=== PATIENT | female | born 1945 | race Caucasian/White ===

== ENCOUNTER → 2016-11-06 | Outpatient (CLI) | payer OTHER ==
[~2016-11-06] MED LIST: ALLERGY RELIEF PO; AMLO5TAB4 PO; ATOR-22 PO; CALC500C70 PO; CHOLCAP5 PO; COEN1CAP28 PO; CYAN100073 PO; CYM/30 PO; GLUCTAB7 PO; LOSA50TA54 PO; RIVA1TAB4 PO; TRAM-10 PO; WARF5TAB90 PO; XRL20 PO
--- NOTE | 2016-11-06 09:35 | DIAGNOSTIC IMAGING REPORT ---
ULTRASOUND OF THE CAROTID ARTERIES CLINICAL HISTORY: Carotid artery atherosclerosis. COMPARISON STUDY: No priors. TECHNIQUE: Real-time, grayscale, and color Doppler sonography of the carotid arteries is performed. Images are reviewed in the transverse and longitudinal planes. FINDINGS: Blood pressures were not assessed due to reportedly restrictions. The carotid arteries are patent bilaterally and demonstrate antegrade flow. There is minimal atherosclerotic plaque identified. Normal doppler arterial waveforms are seen throughout. Velocity measurements are listed below. Common carotid peak systolic velocity (cm/sec): RIGHT: 95 LEFT: 64 ICA proximal peak systolic velocity (cm/sec): RIGHT: 50 LEFT: 68 ICA mid peak systolic velocity (cm/sec): RIGHT: 39 LEFT: 50 ICA distal peak systolic velocity (cm/sec): RIGHT: 51 LEFT: 45 ICA/CC peak systolic ratio: RIGHT: 0.5 LEFT: 1.1 Antegrade flow was shown in the vertebral arteries. The external carotid arteries are patent. IMPRESSION: 1. There is no sonographic evidence of hemodynamically significant stenosis in the right or left carotid arterial system. 2. Antegrade flow is shown in the vertebral arteries. Electronically signed by: Bg Quintana M.D. 11/06/2016 9:33 AM Dictated Date/Time: 11/06/2016 9:32 AM
--- NOTE | 2016-11-11 11:32 | CODING QUERY MEDICAL NECESSITY ---
SUPPORTING DIAGNOSIS NEEDED Dr. Watson, A supporting diagnosis is required for the test/procedure performed on this patient in order for us to be reimbursed by the patient's insurance. Please provide a supporting diagnosis for the following test/procedure listed below next to the test name along with your signature. *If there is no additional diagnosis for this patient that would support the following test/procedure please document that below next to the test/procedure. Test(s)/Procedure(s) that require a supporting diagnosis: * (CAROTID DOP) DUPLEX NECK ARTER DIAGNOSIS: DATE OF SERVICE: 11/06/16 Provider Signature: Date: Thank you Emil Mccann [facility] Information Management Once completed, please kindly fax back to [phone] For questions please call [phone]
== END | disposition home or self-care (01) ==
LOC: C.ULTR 08:59
PROVIDERS: ATTEND Family Medicine
DX: I65.29 Occlusion and stenosis of unspecified carotid artery (principal)

== ENCOUNTER → 2016-11-10 | Day surgery (SDC) | payer OTHER ==
[~2016-11-10] VITALS: Ht 154.9 cm; Wt 71.8 kg
[~2016-11-10] MED LIST changes: +ATROPINE SULFATE 0.1 MG/ML 5ML SYR IV PRN; +FENTANYL CITRATE INJ 50 MCG/1 ML 2 ML VIAL IV PRN; +FENTANYL CITRATE INJ 50 MCG/1 ML 2 ML VIAL ONE; +LACTATED RINGER'S 1000ML 1,000 ML IV SCH; +LIDOCAINE HCL 1% 20 ML VIAL ONE; +MIDAZOLAM HCL 1 MG/ML 2ML VIAL ONE; +MoRPHine SULFATE 2 MG/ML CARP IV PRN; +ONDANSETRON INJ 2 MG/ML 2 ML VIAL IV PRN; +PROPOFOL IV EMULSION 10 MG/ML 20 ML VIAL IV ONE; +TRAMADOL HCL 50 MG TAB PO PRN
[2016-11-10 05:45] VITALS: BP 138/83; PULSE 81; TEMP 36.8; O2SAT 96; Ht 154.9 cm; Wt 71.8 kg
[2016-11-10 06:23] LABS: INR 0.9 (0.9-1.1)
--- NOTE | 2016-11-10 06:40 | History & Physical Bridge Note ---
H&P Re-Evaluation Bridge Note: I have examined the patient, reviewed the History & Physical and in the interval since the performance of the History & Physical I have noted the following changes of clinical significance: No changes notedoff xarelta for 4 days pt marked at bedside
--- NOTE | 2016-11-10 07:02 | Discharge Instructions ---
Discharge Instructions Date of Service November 10, 2016. Visit Reason for Visit: Left Chest A-Port, Hx Of Right Breast Cancer Discharge Discharge Diagnosis / Problem: removal of A-port Discharge Goals Goal(s): Increase independence Activity Recommendations Activity Limitations: as noted below Shower/Bathe: tomorrow Anesthesia . Post Anesthesia Instructions: If you have had General Anesthesia or IV Sedation: * Do not drive today. * Resume driving when surgeon permits. * Do not make important decisions or sign legal documents today. * Call surgeon for: 1. Temperature elevations greater than 101 degrees F. 2. Uncontrollable pain. 3. Excessive bleeding. 4. Persistent nausea and vomiting. 5. Medication intolerance (nausea, vomiting or rash). * For nausea and vomiting use only clear liquids such as: tea, soda, bouillon until nausea subsides, then gradually increase diet as tolerated. * If you have any concerns or questions, call your surgeon's office. If physician is unavailable and it is an emergency, call 911 or go to the nearest emergency room. . Instructions / Follow-Up Instructions / Follow-Up Dr. Mai's office in 1 week or call for any questions or concerns, [phone] Restart Xarelto on Diet Recommendations Recommended Home Diet: no limitations Pending Studies Studies pending at discharge: no Medical Emergencies . Who to Call and When: Medical Emergencies: If at any time you feel your situation is an emergency, please call 911 immediately. . Non-Emergent Contact Non-Emergency issues call your: Surgeon Call Non-Emergent contact if: you have a fever, temperature is above 101.5, your pain is not controlled, wound has increased redness . . "Provider Documentation" section prepared by Emil Foster. .
--- NOTE | 2016-11-10 07:37 | [facility] Post Operative Brief Note ---
Immediate Operative Summary Operative Date November 10, 2016. Pre-Operative Diagnosis Exhausted IV access Post-Operative Diagnosis Same Procedure(s) Performed Removal A-port left chest Surgeon Dr Mai Environmental Projects Advisor Surgeon(s) 0 Estimated Blood Loss 2ml Findings as preop, reservoir and cath removed completely and intact sent to path Specimens A. Explanted hardware Anesthesia 1 % xyl plain(4cc) and iv sedation
[2016-11-10 08:00] VITALS: BP 98/67; PULSE 80; TEMP 36.6; O2SAT 95
[2016-11-10 08:30] VITALS: BP 130/80; PULSE 83; TEMP 36.6; O2SAT 96
--- NOTE | 2016-11-10 08:32 | OPERATIVE REPORT ---
DATE OF OPERATION: 11/10/2016 PREOPERATIVE DIAGNOSIS: A-port left anterior chest exhausted. POSTOPERATIVE DIAGNOSIS: Same. PROCEDURE: Removal of left subclavian A-port Bard port with catheter intact and sent to pathology. SURGEON: Dr. Mai. OPERATION AND FINDINGS: SUMMARY: The patient was brought into the operating room theatre. Left chest was prepped with Betadine solution and properly draped. IV sedation was given. We used local anesthetic 1% Xylocaine without epinephrine, a total of 4 mL to infiltrate just along the incision in the port site which left subclavicular area. Once we incised this, we went onto the pseudocapsule, which we opened more and exposed the reservoir, which was intact. There was no fluid. This was a Bard port, non-MRI compatible. Therefore, we were able to extract it very easily without any difficulty and the catheter came out intact. We checked up to the 0 marking. We held pressure on the subclavian area for approximately 5 minutes while we then closed the wound with a running Vicryl suture, then running Prolene suture in the skin. Dressing was applied. The procedure was tolerated well by the patient and was taken to recovery in good condition. I attest to the content of the Intraoperative Record and any orders documented therein. Any exceptio ns are noted below.
--- NOTE | 2016-11-10 08:44 | Anesthesiology Progress Note ---
Anesthesia Post Op Note Date & Time November 10, 2016 at 08:44 Vital Signs Pain Intensity: 0 Vital Signs Past 12 Hours Date Time Temp Pulse Resp B/P Pulse Ox O2 Delivery O2 Flow Rate FiO2 11/10/16 08:00 36.6 80 18 98/67 95 Room Air 11/10/16 07:41 36.3 84 16 104/73 94 Room Air 11/10/16 07:31 36.0 81 16 117/73 97 Mask 10 11/10/16 05:45 36.8 81 18 138/83 96 Room Air Notes Mental Status: alert / awake / arousable, participated in evaluation Pt Amnestic to Procedure: Yes Nausea / Vomiting: adequately controlled Pain: adequately controlled Airway Patency, RR, SpO2: stable & adequate BP & HR: stable & adequate Hydration State: stable & adequate Anesthetic Complications: no major complications apparent
== END | disposition home or self-care (01) ==
LOC: C.ACU 05:01
PROVIDERS: ATTEND Surgery
DX: Z45.2 Encounter for adjustment and management of vascular access device (principal); F32.9 Major depressive disorder, single episode, unspecified; M79.7 Fibromyalgia; Z86.718 Personal history of other venous thrombosis and embolism; E78.5 Hyperlipidemia, unspecified; I10 Essential (primary) hypertension; M81.0 Age-related osteoporosis without current pathological fracture; Z85.3 Personal history of malignant neoplasm of breast; E55.9 Vitamin D deficiency, unspecified; Z83.3 Family history of diabetes mellitus; Z80.2 Family history of malignant neoplasm of other respiratory and intrathoracic organs; Z87.891 Personal history of nicotine dependence; Z79.899 Other long term (current) drug therapy; Z79.01 Long term (current) use of anticoagulants

== ENCOUNTER → 2017-01-11 | Outpatient (CLI) | payer OTHER ==
[~2017-01-11] MED LIST changes: -ATROPINE SULFATE 0.1 MG/ML 5ML SYR IV PRN; -FENTANYL CITRATE INJ 50 MCG/1 ML 2 ML VIAL IV PRN; -FENTANYL CITRATE INJ 50 MCG/1 ML 2 ML VIAL ONE; -LACTATED RINGER'S 1000ML 1,000 ML IV SCH; -LIDOCAINE HCL 1% 20 ML VIAL ONE; -MIDAZOLAM HCL 1 MG/ML 2ML VIAL ONE; -MoRPHine SULFATE 2 MG/ML CARP IV PRN; -ONDANSETRON INJ 2 MG/ML 2 ML VIAL IV PRN; -PROPOFOL IV EMULSION 10 MG/ML 20 ML VIAL IV ONE; -TRAMADOL HCL 50 MG TAB PO PRN; -WARF5TAB90 PO; -XRL20 PO
[2017-01-11 13:13] LABS: BASO % 0.4 %; BASO ABS # 0.02 K/uL (0-0.2); COMPLETE YES; EOS % 1.4 %; HEMATOCRIT 41.7 % (37-47); IG% 0.2 %; LYMPH % 19.8 %; LYMPH ABS # 0.98 K/uL (1.2-3.4); MEAN CELL VOLUME 91.6 fL (80-100); MEAN CORPUSCULAR HEMOGLOBIN 31.6 pg (25-34); MEAN CORPUSCULAR HGB CONC 34.5 g/dl (32-36); MEAN PLATELET VOLUME 9.7 fL (7.4-10.4); MONO % 10.3 %; NEUT % 67.9 %; PLATELET COUNT 230 K/uL (130-400); RED BLOOD COUNT 4.55 M/uL (4.2-5.4); WHITE BLOOD COUNT 4.94 K/uL (4.8-10.8)
--- NOTE | 2017-01-20 09:50 | CODING QUERY MEDICAL NECESSITY ---
SUPPORTING DIAGNOSIS NEEDED Dr. Watson, A supporting diagnosis is required for the test/procedure performed on this patient in order for us to be reimbursed by the patient's insurance. Please provide a supporting diagnosis for the following test/procedure listed below next to the test name along with your signature. *If there is no additional diagnosis for this patient that would support the following test/procedure please document that below next to the test/procedure. Test(s)/Procedure(s) that require a supporting diagnosis: * ([id number]) B12 VITAMIN LEVEL DIAGNOSIS: DATE OF SERVICE: 01/11/17 Provider Signature: Date: Thank you Emil [facility]ccann [facility] Information Management Once completed, please kindly fax back to [phone] For questions please call [phone]
== END | disposition home or self-care (01) ==
LOC: C.LABMFLN 10:12
PROVIDERS: ATTEND Family Medicine
DX: R53.83 Other fatigue (principal)

== ENCOUNTER → 2017-01-21 | Outpatient (CLI) | payer OTHER ==
--- NOTE | 2017-01-21 15:59 | DIAGNOSTIC IMAGING REPORT ---
RIGHT HIP UNILATERAL 2 VIEWS CLINICAL HISTORY: 71 years-old Female presenting with right hip pain, no history of trauma. TECHNIQUE: Frontal and frog-leg lateral views of the right hip were obtained. COMPARISON: None. FINDINGS: No acute fracture or malalignment. Hip joint congruent. Mild degenerative changes. Joint space preserved. Regional soft tissues grossly normal. IMPRESSION: No acute osseous injury of the right hip. Electronically signed by: Arcadio Isabel M.D. 01/21/2017 3:58 PM Dictated Date/Time: 01/21/2017 3:57 PM
== END | disposition home or self-care (01) ==
LOC: C.RAD 15:19
PROVIDERS: ATTEND Physician Assistant Medical
DX: M25.551 Pain in right hip (principal)

== ENCOUNTER → 2017-01-21 | Outpatient (CLI) | payer OTHER ==
[2016-01-02 14:05] VITALS: BP 105/73; PULSE 91
[2017-01-21 13:57] VITALS: BP 120/75; PULSE 93; TEMP 36.9; O2SAT 97
--- NOTE | 2017-01-21 17:09 | Radiation Oncology Follow-Up ---
Radiation Oncology Follow-Up Date of Visit Jan 21, 2017. Reason For Visit Annual follow-up Radiation Completion Date 05/09/15 Diagnosis (1) Breast cancer, stage 3 Status: Resolved Onset Date: 05/28/2014 Histology Subtype: invasive ductal Stage: lll Permanent Comment: Self detected right breast mass Status post biopsy revealing invasive ductal carcinoma 05/28/2014 Estrogen receptor negative, progesterone receptor negative, HER-2/nick negative Status post bilateral mastectomies with right axillary dissection 06/28/2014 Stage [id number] Status post systemic chemotherapy with Adriamycin and Cytoxan for 4 cycles followed by Taxol given weekly for 12 weeks. She had a 5 week break in Taxol treatment after cycle 6 due to fractured tibia/ fibular Status post DVT found to have factor V Leiden and prothrombin gene now on anticoagulation Status post completion of radiation therapy 05/09/2015 received 6040 cGy Last Edited By: Zohra Tucker on May 27, 2015 13:12 History of Present Illness Ms. Ling is a 70-year-old female who noted a palpable mass in the right breast. On May 282013 patient underwent a unilateral right digital diagnostic mammogram and targeted ultrasound. She had had previous mammograms at [facility] with the most recent on 03/15/2014. A marker was placed on the palpable lesion that was illdefined but appeared to measure 3 x 5 cm. The mammogram showed skin thickening overlying the mass raising the possibility of dermal extension. Targeted ultrasound in the area of the palpable lump at the 3 to 4 o'clock position revealed an irregular hypoechoic mass which was highly suspicious for malignancy. Ultrasound of the right axilla revealed a 2.2 cm lymph node in the low right axilla. An ultrasound guided core biopsy was performed at that time with a clip placement. This revealed an invasive ductal carcinoma Je grade 2 of 3 with no lymphovascular or perineural invasion. Estrogen receptors were negative. Progesterone receptors were negative. HER-2/ nikc overexpression was negative by immunohistochemistry and by FISH. Ki-67 proliferation index was elevated at 40% . Case: [id number]. Patient was seen by Dr. Hampton for discussion of treatment options. His examination of the right breast revealed a 4 cm inferior medial quadrant mass palpable. The right breast was slightly larger than the left. There was no evidence of lymphedema. There appeared to be some involvement of the skin at the 4 o'clock position. Axillary nodes were not palpable. Patient underwent a staging procedure including a PET/CT scan on 06/11. This showed a focus of increased FDG activity fusing to the 4 cm right breast mass. Focus of increased FDG activity also fused to the right axillary lymph node and a right internal mammary lymph node. Genet metastasis were felt to be likely. On June 13 the patient underwent bilateral breast MRIs with without contrast. In the right breast an irregular enhancing mass measuring at least 4.7 cm was identified. The mass extends to involve the overlying skin in the breast at the 3 to 4 o'clock position. The left breast was unremarkable. In the right axilla a 1.6 cm lymph node was identified with no left axillary adenopathy. A 3 mm focus in the left breast at the 1:00 was felt to be benign but recommended follow-up. Patient was seen by Dr. Iqbal for medical oncology evaluation on 06/15/2014. The patient wished to proceed with bilateral mastectomies. 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 Dr. Iqbal felt the patient would be a candidate for postoperative adjuvant chemotherapy. On 06/29/2014 the patient underwent bilateral mastectomies. The tissue from the left breast revealed benign breast tissue. The tissue from the right mastectomy revealed an invasive ductal carcinoma [place] grade 3 of 3. The tumor measured 3.0 x 3.0 x 2.0 cm. There was evidence of tumor involving the dermis. There was no perineural invasion but there was lymphovascular invasion identified. The margins were negative with invasive carcinoma 0.3 cm from the deep margin. 16 lymph nodes were taken one of which was positive with a macro metastatic deposit measuring 1.5 cm and evidence of extranodal extension. A tumor nodule measuring 0.5 cm was noted near the suture that was to represent I pointed the axillary dissection. This was thought to possibly represent an additional lymph node that was completely replaced by tumor. Case: [id number]. Pathologic stage was pT2 pN1a ER negative, KS negative and HER-2 /nick negative. With the positive PET scan showing an in internal mammary lymph node her N stage would be IIIb. Patient is recovering well from her surgery. Her case was discussed at the cancer conference. Recommendations were for adjuvant chemotherapy and following the completion of adjuvant chemotherapy for adjuvant radiation to the right chest wall and the right axilla. She underwent systemic chemotherapy with Adriamycin and Cytoxan for 4 cycles. This was then followed by Taxol weekly for 12 weeks. She tolerated this well but did have a 5 week break after Taxol treatment #6. She slipped and fell on a concrete floor and fractured her tibia and fibula. She steadily improved and was able to then restart and complete her chemotherapy 3 weeks ago. 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 Denies problems with her feet. She did develop DVTs. She stated there have been clots in both lower extremities. She was evaluated and found to have factor V Leiden as well as prothrombin gene. She is now on anticoagulation. She also had a filter placed. She has noted no changes to the chest wall or axilla since the completion of surgery. She returns for CT simulation and to start the process of radiation therapy. She completed radiation therapy 05/09/2015 received 6040 cGy. Interim History She has noticed no changes of the chest wall over this past year. There've been no masses or tenderness and no change of the axilla. She is noticed no swelling of her arm. She made the decision to have her port removed. Then underwent that procedure. She continues to have neuropathy especially of the tips of fingers and the end of the left foot area and she has had arthritic discomfort and some with pain in the right knee. She underwent an injection and this has greatly improved. Of late she has now having pain in her right hip. This is noted especially at night. She denies pain with bearing weight. She felt the hip discomfort came from straining with walking due to the pain in her knee. Today she had an episode of right jaw pain. This was sudden in onset. She became quite concerned. She took 3 baby aspirin. The pain has completely resolved. She did not experience any shortness of breath or diaphoresis. She did not have chest pain. Allergies Coded Allergies: Penicillins (Verified Allergy, Severe, ANAPHYLAXIS, 11/10/16) REJI Inhibitors (Verified Allergy, Unknown, UNKNOWN, 11/10/16) Codeine (Verified Adverse Reaction, Mild, GI SYMPTOMS, 11/10/16) Home Medications Scheduled Amlodipine Besylate (Norvasc), 2.5 MG PO HS Atorvastatin (Lipitor), 20 MG PO QPM Calcium/Vitamin D (Os-Jordan 500 Plus D), 1 TAB PO BID Cholecalciferol (Vitamin D3), 10,000 INTUNIT PO HS Coenzyme Q10 (Ubidecarenone) (Co Q10), 100 MG PO HS Cyanocobalamin (B12), 1 TAB PO DAILY Duloxetine Hcl (Cymbalta), 30 MG PO HS Slokntdqrvt-Kjtrtkcaybw-Xsl C- (Glucosamine Chondroitin), 1 TAB PO QAM Losartan Potassium (Cozaar), 50 MG PO HS Rivaroxaban (Xarelto), 1 TAB PO DAILY [Allergy Relief], 1 TAB PO PRN Scheduled PRN Tramadol (Ultram), 50 MG PO Q4H PRN for Pain Review of Systems Gastrointestinal: Symptoms: WNL Oral: Symptoms: No Problems Respiratory: Symptoms: WNL Urinary: Symptoms: WNL Skin: Symptoms: No Problems Breast: Right Upper Arm Measurement: 29.2 Right Mid Arm Measurement: 23.1 Right Wrist Measurement: 16.5 Left Upper Arm Measurement: 29.5 Left Mid Arm Measurement: 23.8 Left Wrist Measurement: 16.4 Arm Dominence: Left Physical Exam Vital Signs Date Time Temp Pulse Resp B/P (MAP) Pulse Ox O2 Delivery O2 Flow Rate FiO2 01/21/17 13:57 36.9 93 16 120/75 97 Pain: Pain Location: None Patient Pain Scale: 0 - 10 Initial Pain Intensity: 0.0 Fatigue: None General Appearance: no apparent distress Eyes: normal inspection, EOMI ENT: normal ENT inspection, hearing grossly normal Neck: no adenopathy, thyroid normal Respiratory/Chest: lungs clear, no respiratory distress, no accessory muscle use Breast: Examination of the chest reveals bilateral mastectomies. There are no masses or tenderness no axillary adenopathy. There is no tenderness. She has no telangiectasia. Using the [place] score cosmesis she has a good outcome in regards to skin. Cardiovascular: regular rate, rhythm, no gallop, no murmur Abdomen: non tender, soft Extremities: no pedal edema Neurologic/Psychiatric: no motor/sensory deficits, alert, normal mood/affect Skin: warm/dry Laboratory Studies Test 10/29/16 12:26 11/10/16 06:09 01/11/17 10:20 Prothrombin Time 24.7 SECONDS (9.0-12.0) 10.0 SECONDS (9.0-12.0) Prothrombin Time INR 2.2 (0.9-1.1) 0.9 (0.9-1.1) White Blood Count 4.94 K/uL (4.8-10.8) Red Blood Count 4.55 M/uL (4.2-5.4) Hemoglobin 14.4 g/dL (12.0-16.0) Hematocrit 41.7 % (37-47) Mean Corpuscular Volume 91.6 fL (80-100) Mean Corpuscular Hemoglobin 31.6 pg (25-34) Mean Corpuscular Hemoglobin Concent 34.5 g/dl (32-36) Platelet Count 230 K/uL (130-400) Mean Platelet Volume 9.7 fL (7.4-10.4) Neutrophils (%) (Auto) 67.9 % Lymphocytes (%) (Auto) 19.8 % Monocytes (%) (Auto) 10.3 % Eosinophils (%) (Auto) 1.4 % Basophils (%) (Auto) 0.4 % Neutrophils # (Auto) 3.35 K/uL (1.4-6.5) Lymphocytes # (Auto) 0.98 K/uL (1.2-3.4) Monocytes # (Auto) 0.51 K/uL (0.11-0.59) Eosinophils # (Auto) 0.07 K/uL (0-0.5) Basophils # (Auto) 0.02 K/uL (0-0.2) RDW Standard Deviation 43.1 fL (36.4-46.3) RDW Coefficient of Variation 12.9 % (11.5-14.5) Immature Granulocyte % (Auto) 0.2 % Immature Granulocyte # (Auto) 0.01 K/uL (0.00-0.02) Vitamin B12 Level 512 pg/mL (211-911) Thyroid Stimulating Hormone (TSH) 3.730 uIu/ml (0.300-4.500) Assessment & Plan Plan: Continue regular follow-up with medical oncology. The neuropathy has previously been discussed and she does not wish to take medication for this side effects. For the right hip pain and x-rays was ordered. She'll be notified as to results. We discussed the jaw pain. This could've been cardiac in nature. I've asked her to make an appointment for as soon as possible with her primary care physician. She may go to the emergency room if she has any recurrence. We asked her to return to our office in 1 year. Total Time In Follow-Up I spent 20 minutes speaking to the patient performing examination. I spent 15 minutes reviewing information in completing this note. Copy To José Luis Rivas D.O.; Zulma Watson M.D. Problem Qualifiers (1) Breast cancer, stage 3: Laterality: right Qualified Codes: C50.911 - Malignant neoplasm of unspecified site of right female breast
== END | disposition home or self-care (01) ==
LOC: C.ONC 13:43
PROVIDERS: ATTEND Physician Assistant Medical
DX: Z08 Encounter for follow-up examination after completed treatment for malignant neoplasm (principal); Z92.3 Personal history of irradiation; Z85.3 Personal history of malignant neoplasm of breast; M25.551 Pain in right hip

== ENCOUNTER → 2017-01-29 | Outpatient (CLI) | payer OTHER ==
--- NOTE | 2017-01-29 13:51 | EXERCISE STRESS ECHO ---
*NOTICE TO RECEIVING REPUBLICAN AGENCY This information is strictly Confidential and protected under [place] law. [place] law prohibits you from making any further disclosure of this information unless further disclosure is expressly permitted by the written consent of the person to whom it pertains or is authorized by law. A general authorization for the release of medical or other information is not sufficient for this purpose. Hospital accepts no responsibility if the information is made available to any other person, INCLUDING THE PATIENT. Interpretation Summary * Name: VARSHA LUBIN V Study Date: 01/29/2017 09:38 AM BP: 143/80 mmHg * Patient Location: [facility] HR: 79 * : 1945 (M/d/yyyy) Gender: Female Height: 61 in * Age: 71 yrs Ethnicity: [place] Weight: 155 lb * Ordering Physician: FUENTES RAO MD * Referring Physician: JALEN * Performed By: Brittney Schneider RDCS * * Reason For Study: SOB, JAW PAIN * BSA: 1.7 m2 * -- Conclusions -- * The left ventricular wall motion is normal at rest. * Left ventricular systolic function is normal. * Grade I diastolic dysfunction, (abnormal relaxation pattern). 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 This may be a false positive given the absence of EKG changes or symptoms. 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 This may be a false positive given the absence of EKG changes or symptoms. Left Ventricle * The left ventricle is grossly normal size. * There is normal left ventricular wall thickness. * Ejection Fraction = 50-55%. * Left ventricular systolic function is normal. * Grade I diastolic dysfunction, (abnormal relaxation pattern). * The left ventricular wall motion is normal at rest. Right Ventricle * The right ventricle is normal in size and function. Atria * The left atrial size is normal. * Right atrial size is normal. Mitral Valve * The mitral valve anatomy is normal. * Significant mitral regurgitation is absent. Tricuspid Valve * The tricuspid valve is not well visualized, but is grossly normal. * There is mild tricuspid regurgitation. Aortic Valve * The aortic valve is normal in structure and function. * No hemodynamically significant valvular aortic stenosis. * There is no significant aortic regurgitation. Great Vessels * The aortic root is normal size. Pericardium * There is no pericardial effusion. Stress Parameters * Normal baseline electrocardiogram. * The stress ECG response was normal * The stress portion of this study was personally supervised by the undersigned interpreting physician. * Rest heart rate was '79' BPM. * Rest blood pressure was '143/80' * Maximum heart rate achieved was 162 bpm. * Maximum heart rate was 109 % of maximum age-predicted heart rate. * Maximum blood pressure was '218/90' * Total exercise time was '4:51' * Maximum exercise MET level achieved was '6.80' METS * Maximum treadmill speed was '3.50' miles per hour. * Maximum treadmill elevation was '12.00'% grade. * Exercise was terminated due to 'ACHIEVING TARGET HR' Left Ventricular Findings with Stress * Baseline EKG was normal. No significant EKG changes with exercise. Baseline echocardiogram suggested anterior wall hypokinesis Good augmentation with exercise except for the anterior wass which was severely hypokinetic. Exaggerated heart rate response and hypertensive BP response to exercise Walters treadmill score: 4-5 (intermediate risk) No symptoms reported MMode 2D Measurements and Calculations IVSd 10 cm IVSs 1.3 cm LVIDd 4.2 cm LVIDs 3.0 cm LVPWd 0.73 cm LVPWs 1.4 cm IVS/LVPW 1.4 FS 26.8 % EDV(Teich) 76.9 ml ESV(Teich) 36.3 ml EF(Teich) 52.8 % EDV(cubed) 72.0 ml ESV(cubed) 28.2 ml EF(cubed) 60.8 % % IVS thick 30.8 % % LVPW thick 92.0 % LV mass(C)d 110.3 grams LV mass(C)dI 65.1 grams/m\S\2 LV mass(C)s 135.0 grams LV mass(C)sI 79.6 grams/m\S\2 SV(Teich) 40.6 ml SI(Teich) 23.9 ml/m\S\2 SV(cubed) 43.8 ml SI(cubed) 25.9 ml/m\S\2 Ao root diam 3.4 cm Ao root area 9.1 cm\S\2 LA dimension 2.8 cm LA/Ao 0.82 LVAd ap4 24.0 cm\S\2 LVLd ap4 7.8 cm EDV(MOD-sp4) 63.5 ml EDV(sp4-el) 62.7 ml LVAs ap4 14.8 cm\S\2 LVLs ap4 6.4 cm ESV(MOD-sp4) 31.3 ml ESV(sp4-el) 29.0 ml EF(MOD-sp4) 50.7 % EF(sp4-el) 53.7 % LVAd ap2 21.8 cm\S\2 LVLd ap2 6.9 cm EDV(MOD-sp2) 60.9 ml EDV(sp2-el) 58.2 ml LVAs ap2 14.5 cm\S\2 LVLs ap2 6.2 cm ESV(MOD-sp2) 31.3 ml ESV(sp2-el) 28.5 ml EF(MOD-sp2) 48.7 % EF(sp2-el) 51.0 % LVLd %diff -12.54 % EDV(MOD-bp) 65.4 ml LVLs %diff -2.56 % ESV(MOD-bp) 30.8 ml EF(MOD-bp) 52.9 % SV(MOD-sp4) 32.2 ml SI(MOD-sp4) 19.0 ml/m\S\2 SV(MOD-sp2) 29.6 ml SI(MOD-sp2) 17.5 ml/m\S\2 SV(MOD-bp) 34.6 ml SI(MOD-bp) 20.4 ml/m\S\2 SV(sp4-el) 33.7 ml SI(sp4-el) 19.9 ml/m\S\2 SV(sp2-el) 29.7 ml SI(sp2-el) 17.5 ml/m\S\2 Doppler Measurements and Calculations MV E max nayan 56.8 cm/sec MV A max nayan 88.3 cm/sec MV E/A 0.64 MV dec time 0.23 sec Ao V2 max 89.5 cm/sec Ao max PG 3.2 mmHg Ao max PG (full) 0.79 mmHg LV V1 max PG 2.4 mmHg LV V1 max 77.6 cm/sec
== END | disposition home or self-care (01) ==
LOC: C.CPL 09:30
PROVIDERS: ATTEND Family Medicine
DX: R68.84 Jaw pain (principal); R06.02 Shortness of breath

== ENCOUNTER → 2017-06-01 | Outpatient (CLI) | payer OTHER ==
[2017-06-01 13:24] LABS: BASO % 0.2 %; BASO ABS # 0.01 K/uL (0-0.2); COMPLETE YES; EOS % 0.9 %; HEMATOCRIT 42.5 % (37-47); IG% 0.2 %; LYMPH % 20.5 %; LYMPH ABS # 1.15 K/uL (1.2-3.4); MEAN CELL VOLUME 91.4 fL (80-100); MEAN CORPUSCULAR HEMOGLOBIN 31.6 pg (25-34); MEAN CORPUSCULAR HGB CONC 34.6 g/dl (32-36); MEAN PLATELET VOLUME 9.9 fL (7.4-10.4); MONO % 8.8 %; NEUT % 69.4 %; PLATELET COUNT 224 K/uL (130-400); RED BLOOD COUNT 4.65 M/uL (4.2-5.4)
--- NOTE | 2017-06-01 13:32 | DIAGNOSTIC IMAGING REPORT ---
CHEST 2 VIEWS ROUTINE CLINICAL HISTORY: 72 years-old Female presenting with BREAST CA, WENT TO LAB [facility]. TECHNIQUE: PA and lateral views of the chest were obtained. COMPARISON: 10/21/2016. FINDINGS: Interval removal of the left subclavian Mediport. Atherosclerosis of aortic arch. Chronic silhouette normal in size. Lungs and pleural spaces clear. Degenerative changes of the thoracic spine. Degenerative changes of the acromioclavicular joints. Upper abdomen normal. IMPRESSION: 1. No acute cardiopulmonary disease. Electronically signed by: Arcadio Isabel M.D. 06/01/2017 1:30 PM Dictated Date/Time: 06/01/2017 1:29 PM
[2017-06-01 13:50] LABS: ALT/SGPT 20 U/L (12-78); BLOOD UREA NITROGEN 11 mg/dl (7-18); BUN/CREATININE RATIO 15.5 (10-20); CALCIUM 9.4 mg/dl (8.5-10.1); CARBON DIOXIDE 26 mmol/L (21-32); CHLORIDE 104 mmol/L (98-107); CREATININE 0.69 mg/dl (0.60-1.20); GLUCOSE 81 mg/dl (70-99); POTASSIUM 3.6 mmol/L (3.5-5.1); SODIUM 137 mmol/L (136-145)
[2017-06-01 13:53] LABS: ALB/GLOB RATIO 1.1 (0.9-2); ALKALINE PHOSPHATASE 121 U/L (45-117); AST/SGOT 20 U/L (15-37)
== END | disposition home or self-care (01) ==
LOC: C.LAB 12:48
PROVIDERS: ATTEND Nurse Practitioner Family
DX: C50.911 Malignant neoplasm of unspecified site of right female breast (principal)

== ENCOUNTER → 2017-10-28 | Outpatient (CLI) | payer OTHER | END | disposition home or self-care (01) | LOC: C.LABMFLN 10:50 | PROVIDERS: ATTEND Family Medicine | DX: E78.5 Hyperlipidemia, unspecified (principal) ==

== ENCOUNTER → 2018-01-05 | Outpatient (CLI) | payer OTHER ==
--- NOTE | 2018-01-05 15:02 | DIAGNOSTIC IMAGING REPORT ---
SOFT TISS HEAD/NECK-THYROID CLINICAL HISTORY: 72 years-old Female presenting with R59.0 Cervical lymphadenopathy, history of breast cancer with right axillary bel dissection, palpable lump at the left inferior and lateral neck. TECHNIQUE: Real-time grayscale and color Doppler ultrasound imaging of the neck was performed. COMPARISON: None. FINDINGS: At the site of clinical interest in the left base of the neck, multiple suspicious-appearing lymph nodes noted. These are rounded globular and do not maintain a normal fatty hilum. These are index below: 1. 5 x 5 x 6 mm lymph node. 2. 9 x 10 x 10 mm lymph node. 3. 9 x 18 x 11 mm lymph node. 4. 13 x 17 x 8 mm lymph node. The right base of the neck does not demonstrate suspicious lymphadenopathy. IMPRESSION: Multiple pathologically enlarged and highly suspicious appearing lymph nodes in the left base of the neck near the supraclavicular fossa. Fine-needle aspiration of the largest lymph node is recommended under ultrasound guidance given the suspicion for malignancy. The report will be called/faxed according to standard departmental protocol. Electronically signed by: Arcadio Isabel M.D. 01/05/2018 3:01 PM Dictated Date/Time: 01/05/2018 2:58 PM
== END | disposition home or self-care (01) ==
LOC: C.ULTR 13:52
PROVIDERS: ATTEND Physician Assistant
DX: R59.0 Localized enlarged lymph nodes (principal); Z85.3 Personal history of malignant neoplasm of breast

== ENCOUNTER → 2018-01-25 | Outpatient (CLI) | payer OTHER ==
[2018-01-25 13:20] VITALS: BP 134/83; PULSE 80; TEMP 36.5; O2SAT 97
--- NOTE | 2018-01-25 15:08 | Radiation Oncology Follow-Up ---
Radiation Oncology Follow-Up Date of Visit Jan 25, 2018. Reason For Visit Annual follow up Radiation Completion Date 05/09/15 Diagnosis (1) Breast cancer, stage 3 Status: Chronic Onset Date: 05/28/2014 Location: Now with left supraclavicular recurrence Permanent Comment: Self detected right breast mass Status post biopsy revealing invasive ductal carcinoma 05/28/2014 Estrogen receptor negative, progesterone receptor negative, HER-2/nick negative Status post bilateral mastectomies with right axillary dissection 06/28/2014 Stage [id number] Status post systemic chemotherapy with Adriamycin and Cytoxan for 4 cycles followed by Taxol given weekly for 12 weeks. She had a 5 week break in Taxol treatment after cycle 6 due to fractured tibia/ fibular Status post DVT found to have factor V Leiden and prothrombin gene now on anticoagulation Status post completion of radiation therapy 05/09/2015 received 6040 cGy Last Edited By: Zohra Tucker on May 27, 2015 13:12 History of Present Illness Ms. Lubin is a 70-year-old female who noted a palpable mass in the right breast. On May 282013 patient underwent a unilateral right digital diagnostic mammogram and targeted ultrasound. She had had previous mammograms at [facility] with the most recent on 03/15/2014. A marker was placed on the palpable lesion that was illdefined but appeared to measure 3 x 5 cm. The mammogram showed skin thickening overlying the mass raising the possibility of dermal extension. Targeted ultrasound in the area of the palpable lump at the 3 to 4 o'clock position revealed an irregular hypoechoic mass which was highly suspicious for malignancy. Ultrasound of the right axilla revealed a 2.2 cm lymph node in the low right axilla. An ultrasound guided core biopsy was performed at that time with a clip placement. This revealed an invasive ductal carcinoma [place] grade 2 of 3 with no lymphovascular or perineural invasion. Estrogen receptors were negative. Progesterone receptors were negative. HER-2/ nick overexpression was negative by immunohistochemistry and by FISH. Ki-67 proliferation index was elevated at 40% . Case: [id number]. Patient was seen by Dr. Hampton for discussion of treatment options. His examination of the right breast revealed a 4 cm inferior medial quadrant mass palpable. The right breast was slightly larger than the left. There was no evidence of lymphedema. There appeared to be some involvement of the skin at the 4 o'clock position. Axillary nodes were not palpable. Patient underwent a staging procedure including a PET/CT scan on 06/11. This showed a focus of increased FDG activity fusing to the 4 cm right breast mass. Focus of increased FDG activity also fused to the right axillary lymph node and a right internal mammary lymph node. Bel metastasis were felt to be likely. On June 13 the patient underwent bilateral breast MRIs with without contrast. In the right breast an irregular enhancing mass measuring at least 4.7 cm was identified. The mass extends to involve the overlying skin in the breast at the 3 to 4 o'clock position. The left breast was unremarkable. In the right axilla a 1.6 cm lymph node was identified with no left axillary adenopathy. A 3 mm focus in the left breast at the 1:00 was felt to be benign but recommended follow-up. Patient was seen by Dr. Iqbal for medical oncology evaluation on 06/15/2014. The patient wished to proceed with bilateral mastectomies. 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 Dr. Iqbal felt the patient would be a candidate for postoperative adjuvant chemotherapy. On 06/29/2014 the patient underwent bilateral mastectomies. The tissue from the left breast revealed benign breast tissue. The tissue from the right mastectomy revealed an invasive ductal carcinoma [place] grade 3 of 3. The tumor measured 3.0 x 3.0 x 2.0 cm. There was evidence of tumor involving the dermis. There was no perineural invasion but there was lymphovascular invasion identified. The margins were negative with invasive carcinoma 0.3 cm from the deep margin. 16 lymph nodes were taken one of which was positive with a macro metastatic deposit measuring 1.5 cm and evidence of extranodal extension. A tumor nodule measuring 0.5 cm was noted near the suture that was to represent I pointed the axillary dissection. This was thought to possibly represent an additional lymph node that was completely replaced by tumor. Case: [id number]. Pathologic stage was pT2 pN1a ER negative, GA negative and HER-2 /nick negative. With the positive PET scan showing an in internal mammary lymph node her N stage would be IIIb. Patient is recovering well from her surgery. Her case was discussed at the cancer conference. Recommendations were for adjuvant chemotherapy and following the completion of adjuvant chemotherapy for adjuvant radiation to the right chest wall and the right axilla. She underwent systemic chemotherapy with Adriamycin and Cytoxan for 4 cycles. This was then followed by Taxol weekly for 12 weeks. She tolerated this well but did have a 5 week break after Taxol treatment #6. She slipped and fell on a concrete floor and fractured her tibia and fibula. She steadily improved and was able to then restart and complete her chemotherapy 3 weeks ago. 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 Denies problems with her feet. She did develop DVTs. She stated there have been clots in both lower extremities. She was evaluated and found to have factor V Leiden as well as prothrombin gene. She is now on anticoagulation. She also had a filter placed. She has noted no changes to the chest wall or axilla since the completion of surgery. She returns for CT simulation and to start the process of radiation therapy. She completed radiation therapy 05/09/2015 received 6040 cGy. Interim History The patient noted a small tiny mass of the left supraclavicular area. She was seen at the primary care physician's office and ultrasound was ordered. This was performed on January 05, 2018. This revealed multiple pathologically enlarged and highly suspicious appearing lymph nodes in the left base of the neck near the supraclavicular fossa. She then underwent an FNA January 10, 2018. This revealed metastatic adenocarcinoma consistent with metastatic adenocarcinoma of the breast origin. Estrogen receptor was negative progesterone receptor negative and failed to overexpress HER-2/nick. She has been referred back to her medical oncologist who ordered a PET CT. This had been scheduled for yesterday January 24. Unfortunately the PET scanner was down. This is now been rescheduled for tomorrow January 26. In general she does feel generally fatigued. She has had approximate 7 pound weight loss. This was mainly related to following a low-carb diet. This was in preparation for her PET/CT. She denies any discomfort of the neck. She is noted no masses of her chest. He has noted no masses of the axilla. Allergies Coded Allergies: Penicillins (Verified Allergy, Severe, ANAPHYLAXIS, 11/10/16) REJI Inhibitors (Verified Allergy, Unknown, UNKNOWN, 11/10/16) Codeine (Verified Adverse Reaction, Mild, GI SYMPTOMS, 11/10/16) Home Medications Scheduled Amlodipine Besylate (Norvasc), 2.5 MG PO HS Atorvastatin (Lipitor), 20 MG PO QPM Calcium/Vitamin D (Os-Jordan 500 Plus D), 1 TAB PO BID Cholecalciferol (Vitamin D3), 10,000 INTUNIT PO HS Coenzyme Q10 (Ubidecarenone) (Co Q10), 100 MG PO HS Cyanocobalamin (B12), 1 TAB PO DAILY Duloxetine Hcl (Cymbalta), 30 MG PO HS Oxzhoczkker-Ocodhfukvug-Jyx C- (Glucosamine Chondroitin), 1 TAB PO QAM Losartan Potassium (Cozaar), 50 MG PO HS Rivaroxaban (Xarelto), 1 TAB PO DAILY Scheduled PRN Tramadol (Ultram), 50 MG PO Q4H PRN for Pain Review of Systems Gastrointestinal: Symptoms: WNL Oral: Symptoms: No Problems Respiratory: Symptoms: WNL Urinary: Symptoms: WNL Skin: Symptoms: No Problems Breast: Right Upper Arm Measurement: 31.5 Right Mid Arm Measurement: 24.5 Right Wrist Measurement: 16.5 Left Upper Arm Measurement: 31.0 Left Mid Arm Measurement: 24.8 Left Wrist Measurement: 16.3 Arm Dominence: Left Physical Exam Vital Signs Date Time Temp Pulse Resp B/P (MAP) Pulse Ox O2 Delivery O2 Flow Rate FiO2 01/25/18 13:20 36.5 80 16 134/83 97 Fatigue: Mild General Appearance: no apparent distress Eyes: normal inspection, EOMI ENT: normal ENT inspection, hearing grossly normal Neck: supple, + pertinent finding (There is palpable adenopathy of the left supraclavicular area. A 1 cm node can be felt in the supraclavicular fossa.) Respiratory/Chest: lungs clear, no respiratory distress, no accessory muscle use Breast: Examination of the chest wall reveals status post bilateral mastectomies. On the right there is telangiectasia. There are no areas of tenderness or masses bilaterally. There is no axillary adenopathy. Cardiovascular: regular rate, rhythm, no gallop, no murmur Extremities: no pedal edema Neurologic/Psychiatric: no motor/sensory deficits, alert, normal mood/affect Skin: warm/dry Pain Management Patient Reports Pain: No Initial Pain Intensity: 0.0 Pain Management Plan She denies pain therefore requires no pain management. Laboratory Laboratory Results: not applicable Pathology Pathology Results: were reviewed, and pertinent findings noted below Pathology Comments [facility] NON-GYNECOLOGICAL CYTOLOGY REPORT Name: VARSHA LUBIN V Case: [id number] NON-GYNECOLOGICAL CYTOLOGY REPORT Page [address] of [address] [place] [address] Arcadio Smith M.D. Director NON-GYNECOLOGICAL CYTOLOGY REPORT NON-GYNECOLOGICAL CYTOLOGY REPORT Page 1 of 4 Name: VARSHA LUBIN V Age/Sex: 72/F Location: [facility] MR# [id number] : 1945 Rm/Bed: [facility]# [id number] Physician: Cathy Lazcano Case: [id number] Received 01/10/18 Specimen Date 01/10/18 Specimen: FINE NEEDLE/NECK GROSS DESCRIPTION 2 D.Q., 1 PAP, CELL BLOCK Rapid Onsite evaluations were performed by Dr. Smith Total episode or site evaluations: 1 PASS# TIME DIAGNOSIS 1. 1100 Malignant cells present consistent with carcinoma 2. 1102 Malignant cells present consistent with carcinoma MICROSCOPIC DESCRIPTION Fine needle aspiration (x2) of an enlarged lymph node of left side of the neck are performed by the radiologist. Pass #1 is prepared as a Diff-Quik stain direct smear and Papanicolaou stain direct smear. Pass #2 is prepared as a single Diff-Quik stain direct smear. Pooled needle wash material is prepared as a cell block and cell block is examined separately. After examining the cell block, multiple immunohistochemical stains were obtained in this case to confirm site of origin and prognosticate this patients tumor. Internal and external control cells were appropriately positive for all of the immunohistochemical stains obtained. Comment: Mrs. Varsha Lubin is a 72-year-old woman who underwent bilateral mastectomies with right axillary node dissection in 2014. Her right breast cancer was triple negative and was staged at [id number]. Subsequently, the patient was found to have an enlarged internal mammary lymph node by CT scan. She now presents with an enlarged lymph node of the left side of the neck. The direct smears reveal tumor cellularity. They contain atypical epithelial cells arranged in three dimensional aggregates, small clusters and singly. Necrosis is seen. Striking anisonucleosis, nucleomegaly, increased nuclear to cytoplasmic ratios, clumped chromatin and macronucleoli are all seen. The cell block is as well remarkably cellular. Many malignant cells found singly are identified. The cell block as well is remarkably cellular. Many malignant cells are found singly. Intracytoplasmic lumens are not seen. Please note this patients right mastectomy, previous case [id number], revealed a Grade 3 infiltrative duct adenocarcinoma. Multiple immunohistochemical stains were obtained in this case to confirm site of origin and prognosticate this patients metastatic carcinoma. The malignant cells are diffusely and strongly positive for CK7 and entirely negative for CK20. This is the pattern of breast adenocarcinoma. The malignant cells are diffusely and moderately positive (+2/+3) for mammoglobin, a marker of adenocarcinoma of breast origin. These same cells are negative for CDX2 militating against a gastrointestinal primary and they are negative TTF-1 militating against an adenocarcinoma of the lung. The cells are as well negative for P40 militating against a squamous cell carcinoma of the lung. Interestingly, the same cells are negative for ROHIT 3 which is a marker for carcinomas of urothelial origin and adenocarcinomas of breast origin. Be this as it may, the cells are clearly positive for CK7 and mammoglobin which are both consistent with an adenocarcinoma of breast origin. Thus, this patients metastatic carcinoma is consistent with metastatic adenocarcinoma of breast origin. The immunohistochemical stain for the estrogen receptor highlights 0% of the cells. The immunohistochemical stain for the progesterone receptor highlights 0 % of the cells. The immunohistochemical stain for HER2/nick protein highlights 0 % of the cell membranes in term of the malignant cells. Thus, this metastatic adenocarcinoma remains triple negative. THE FOLLOWING CONTAINS REGULATORY, QUALITY AND NECESSITY STATEMENTS THAT MAY NOT PERTAIN TO THIS CASE. ESTROGEN (ER) AND PROGESTERONE RECEPTOR (GA): If performed then immunohistochemical studies were done on formalin fixed paraffin embedded tissue for ER (clone [id number]) and GA (clone [id number]). 1% nuclear staining is considered positive. The percentage of tumor cells with nuclear staining is reported. HER -2 NICK: If performed then immunohistochemical studies were done on formalin fixed paraffin embedded tissue for Her-2 nick (clone [id number]) employing the [employer] Her 2 System. The scoring system is as follows: HER2 POSITIVE (score 3+): >10% of tumor cells that must show homogeneous, dark circumferential (chicken wire) pattern. HER2 EQUIVOCAL (score 2+): circumferential membrane staining that is incomplete and/or weak/moderate and within >10% of the invasive tumor cells; or complete and circumferential membrane staining that is intense and within </=10% of the invasive tumor cells. HER2 NEGATIVE (score 1+ or 0): Score 1+ as defined by incomplete membrane staining that is faint/barely perceptible and within >10% of the invasive tumor cells. Score 0 as defined by no staining observed or membrane staining that is incomplete and is faint/barely perceptible and within </=10% of the invasive tumor cells. ER, GA and/or HER2 assays have not been validated on decalcified tissues. Results should be interpreted with caution given the likelihood of false negativity on decalcified specimens. If performed, Ki-67 has been shown by some authors to be an independent prognostic parameter and may have a useful role in estimating Oncotype DX recurrence scores (http://path.[facility]/onlineTools/MageeEquations.html). References 1. Kim AC, Jose L ME, et al. Recommendations for human epidermal growth factor receptor 2 testing in breast cancer: [place] Society of Clinical Oncology/College of [place] Pathologists clinical practice guideline update. THE FOLLOWING CONTAINS REGULATORY, QUALITY AND NECESSITY STATEMENTS THAT MAY NOT PERTAIN TO THIS CASE. Immunohistochemical stains at [facility] ([facility]) are performed for diagnostic reasons (i.e. detection of malignancy, tumor subtyping, infection identification), therapy selection (i.e. estrogen receptor) and genetic disorder evaluation (i.e. Stacy syndrome). The quantity and specific types of immunohistochemistry stains are purposely chosen in the context of the clinical history, morphologic findings and best clinical practice. H&E slides are reviewed prior to ordering Helicobacter pylori stains. Immunohistochemical stains are performed at [facility] on a [employer] automated system with performance determined by the [facility]. The detection system ( ultraView [place] DAB detection kit) is an indirect biotin free system for detecting mouse IgG, mouse IgM and rabbit primary antibodies. Some stains may be performed by other laboratories ([facility] or [facility]) with development and performance characteristics determined by that laboratory. When necessary, on-line positive controls are reviewed at that particular laboratory. These tests have not been cleared or approved for specific use by the U.S. Food and Drug Administration. The FDA has determined that such approval is not necessary. The test is used for clinical purposes. It should not be regarded as investigational or for research. This laboratory is certified under CLIA 1988 as qualified to perform high complexity testing. Immunohistochemistry performed on decalcified specimens is done with antigen retrieval which has been internally validated in the [facility] laboratory. Immunocytochemistry may be performed on alcohol fixed smears, cytospins or Thin Prep slides. Immunocytochemistry on all of these types of slides has been internally validated in the [facility] laboratory. FINAL DIAGNOSIS DIAGNOSIS: LYMPH NODE, LEFT SIDE OF NECK (FINE NEEDLE ASPIRATION): 1. METASTATIC ADENOCARCINOMA CONSISTENT WITH METASTATIC ADENOCARCINOMA OF BREAST ORIGIN IS SEEN. 2. THE MALIGNANT CELLS ARE ESTROGEN RECEPTOR NEGATIVE, PROGESTERONE RECEPTOR NEGATIVE AND FAILED TO OVEREXPRESS THE HER2/NICK PROTEIN. 3. PLEASE SEE ABOVE DISCUSSION. HK/bf COPIES TO Zulma Watson M.D. [address] [place] [id number] Cathy Lazcano [address] [id number] Imaging Imaging Studies: were reviewed, and pertinent findings noted below Imaging Comments Patient: VARSHA LUBIN V Address1: [address] [facility] Rec: [id number] Address2: Acct ID: [id number] [facility] Zip: [place] [address] Date: 1945 Sex: F Room/Bed: Ref Phy: Zulma Watson M.D. SC: C.ULTR Att Phy: Cathy Lazcano Report #: [id number] Anel Phy: Zulma Watson M.D. Test: THY Admit Phy: Fur Blower Operator: MILLY Interpreting Phy: Arcadio Isabel MD Diagnosis: CERVICAL LYMPHADENOPATHY Ordering Phy: Cathy Lazcano Service Date: 01/05/18 Admit Date: 01/05/18 MNE: [id number] CONF: DICTATED BY: Arcadio Isabel MD]] CC: Zulma Watson M.D. [place], Jennifer P.A. Endcc: [~ rep ct add3]] SOFT TISS HEAD/NECK-THYROID CLINICAL HISTORY: 72 years-old Female presenting with R59.0 Cervical lymphadenopathy, history of breast cancer with right axillary bel dissection, palpable lump at the left inferior and lateral neck. TECHNIQUE: Real-time grayscale and color Doppler ultrasound imaging of the neck was performed. COMPARISON: None. FINDINGS: At the site of clinical interest in the left base of the neck, multiple suspicious-appearing lymph nodes noted. These are rounded globular and do not maintain a normal fatty hilum. These are index below: 1. 5 x 5 x 6 mm lymph node. 2. 9 x 10 x 10 mm lymph node. 3. 9 x 18 x 11 mm lymph node. 4. 13 x 17 x 8 mm lymph node. The right base of the neck does not demonstrate suspicious lymphadenopathy. IMPRESSION: Multiple pathologically enlarged and highly suspicious appearing lymph nodes in the left base of the neck near the supraclavicular fossa. Fine-needle aspiration of the largest lymph node is recommended under ultrasound guidance given the suspicion for malignancy. The report will be called/faxed according to standard departmental protocol. Electronically signed by: Arcadio Isabel M.D. 01/05/2018 3:01 PM Dictated Date/Time: 01/05/2018 2:58 PM Assessment & Plan Plan: The patient will undergo a PET CT tomorrow. Will await the final results. I reviewed with her that medical oncology will make decision in regards to treatment. If radiation therapy is recommended she will be referred back to our office. A follow-up appointment this time was not arranged until the completion of the PET/CT. We will await the outcome of the PET/CT and recommendations of medical oncology. Total Time In Follow-Up I spent 20 minutes speaking to the patient in performing examination. I spent 15 minutes reviewing information and completing this note. AK Copy To Zulma Watson M.D.; Riley Caballero MD Problem Qualifiers (1) Breast cancer, stage 3: Laterality: right Qualified Codes: C50.911 - Malignant neoplasm of unspecified site of right female breast
== END | disposition home or self-care (01) ==
LOC: C.ONC 12:48 → EDSTATUS 13:30
PROVIDERS: ATTEND Physician Assistant Medical
DX: Z08 Encounter for follow-up examination after completed treatment for malignant neoplasm (principal); Z92.3 Personal history of irradiation; Z85.3 Personal history of malignant neoplasm of breast

== ENCOUNTER → 2018-02-02 | Outpatient (CLI) | payer OTHER ==
--- NOTE | 2018-02-02 13:24 | DIAGNOSTIC IMAGING REPORT ---
PET/CT SKULL-THIGH CLINICAL HISTORY: 72 years-old Female presenting with BREST CANCER, last treatment in 2014. TECHNIQUE: PET/CT was performed from the skull base through the proximal thighs following the intravenous administration of 12.104 mCi of F18-FDG. Blood glucose level 85 mg/dL. The injection was performed at 11:44 AM and imaging began at 12:[address] was performed for attenuation correction purposes and anatomic localization. COMPARISON: 02/20/2015. CT DOSE (mGy.cm): The estimated cumulative dose is 358.47. FINDINGS: Head and neck: FDG avid and enlarged left cervical lymph node in the left supraclavicular fossa, measuring 1.9 x 1.4 cm (max SUV 7.06). No other FDG-avid mass in the visualized portion of the head or neck. Chest: Postsurgical changes of bilateral mastectomy. FDG avid and enlarged mediastinal lymph nodes in the left paratracheal region measuring 13 mm in the short axis (max SUV 6.31), right prevascular region measuring 13 mm in short axis (max SUV 8.68), and aortopulmonary window measuring 12 mm in the short axis (max SUV 5.36). Normal aorta. Normal heart size. Small pericardial effusion. No pleural effusion. Minimal dependent changes likely atelectasis. No FDG avid focal nodule or infiltrate. Airways patent. Abdomen and pelvis: Normal physiologic distribution of radiotracer in the gastrointestinal and genitourinary tracts. No FDG avid lymphadenopathy or mass lesion. Photopenic left ovarian cyst is unchanged. Diverticulosis of the sigmoid colon. Atherosclerosis of the normal caliber abdominal aorta. Musculoskeletal: Degenerative changes of the spine. No FDG avid or destructive osseous lesion. IMPRESSION: 1. Follow-up PET/CT demonstrates FDG avid left supraclavicular and mediastinal lymphadenopathy highly suspicious for recurrent metastatic disease. No other sites of disease. 2. Postsurgical changes of mastectomy. 3. Photopenic left ovarian cyst, unchanged since 2014. Electronically signed by: Arcadio Isabel M.D. 02/02/2018 1:23 PM Dictated Date/Time: 02/02/2018 1:09 PM
== END | disposition home or self-care (01) ==
LOC: C.PET 10:34
PROVIDERS: ATTEND Internal Medicine Hematology & Oncology
DX: C50.911 Malignant neoplasm of unspecified site of right female breast (principal)

== ENCOUNTER → 2018-02-08 | Outpatient (CLI) | payer OTHER ==
[~2018-02-08] MED LIST changes: -ALLERGY RELIEF PO
[2018-02-08 15:30] LABS: BASO % 0.2 %; BASO ABS # 0.01 K/uL (0-0.2); EOS % 1.7 %; EOS ABS # 0.09 K/uL (0-0.5); HEMATOCRIT 41.4 % (37-47); HEMOGLOBIN 14.1 g/dL (12.0-16.0); IG# 0.01 K/uL (0.00-0.02); LYMPH % 20.5 %; LYMPH ABS # 1.08 K/uL (1.2-3.4); MEAN CELL VOLUME 90.8 fL (80-100); MEAN CORPUSCULAR HEMOGLOBIN 30.9 pg (25-34); MEAN CORPUSCULAR HGB CONC 34.1 g/dl (32-36); MEAN PLATELET VOLUME 10.1 fL (7.4-10.4); MONO % 11.2 %; MONO ABS # 0.59 K/uL (0.11-0.59); NEUT % 66.2 %; PLATELET COUNT 224 K/uL (130-400); RED CELL DISTRIBUTION WIDTH CV 13.6 % (11.5-14.5); RED CELL DISTRIBUTION WIDTH SD 44.9 fL (36.4-46.3); WHITE BLOOD COUNT 5.28 K/uL (4.8-10.8)
[2018-02-08 15:50] LABS: ALBUMIN 3.8 gm/dl (3.4-5.0); ALKALINE PHOSPHATASE 135 U/L (45-117); ALT/SGPT 27 U/L (12-78); AST/SGOT 25 U/L (15-37); BLOOD UREA NITROGEN 17 mg/dl (7-18); CALCIUM 9.1 mg/dl (8.5-10.1); CARBON DIOXIDE 29 mmol/L (21-32); CREATININE 0.96 mg/dl (0.60-1.20); GLUCOSE 73 mg/dl (70-99); SODIUM 139 mmol/L (136-145); TOTAL PROTEIN 7.4 gm/dl (6.4-8.2)
== END | disposition home or self-care (01) ==
LOC: C.CCL 15:05
PROVIDERS: ATTEND Internal Medicine Hematology & Oncology
DX: C50.911 Malignant neoplasm of unspecified site of right female breast (principal)